=== PATIENT | female | born 1990 | race Caucasian/White ===

== ENCOUNTER → 2016-10-01 | Outpatient (CLI) | payer BC | LOC: RAD 09:34 | PROVIDERS: ATTEND Family Medicine | DX: R10.13 Epigastric pain (principal); R10.31 Right lower quadrant pain; Z90.49 Acquired absence of other specified parts of digestive tract | CPT/HCPCS: 76700; 76856 ==

== ENCOUNTER 2016-12-21 14:33 | Emergency (ER) | payer BC, OTHER ==
[~2016-12-21] VITALS: Ht 170.2 cm; Wt 138.0 kg
[~2016-12-21 14:33] MED LIST: ALB0.5V INH; AMT50T PO; BACI28.32 EXT; CEPH-507 PO; CODE-54 PO; DOXY1TAB4 PO; METH4TAB27 PO; MNTL10T PO; NORG1TAB14 PO; OMEP40CA36 PO; ONDN4T PO; PNV91TAB3 PO
--- OUTSIDE RECORDS SUMMARY | 2016-12-21 14:39 | XMS REPORT | Referral Summary ---
Author Author [facility] Organization [facility] Address Unknown Phone Unavailable Care Team Providers Care Costume Seamstress Name Role Phone Harinder Gee PCP [phone] Encounter Date(s): 04/15/15 - 04/15/15 [facility] [id number] [place] [id number] [facility] Discharge Diagnosis: Asthma Discharge Disposition: 01-Home or Self Care Attending Physician: Carley Moody MD Admitting Physician: Carley Moody MD Vital Signs No data available for this section Problem List Condition Effective Dates Status Health Status Informant Asthma(Confirmed) Active GERD Active (gastroesophageal reflux disease)(Confirmed) Morbid Active patient obesity(Confirmed) Allergies, Adverse Reactions, Alerts Substance Reaction Severity Status Latex Active Medications cetirizine 10 mg oral tablet 10 mg 1 tabs, Oral, Daily, # 30 tabs, 0 Refill(s) Start Date: 04/15/15 Status: Orderedomeprazole 40 mg oral delayed release capsule mg caps, Oral, BID, 0 Refill(s) Start Date: 04/15/15 Status: OrderedProventil HFA 90 mcg/inh inhalation aerosol See Instructions, 2-4 puffs every 4-6 hrs prn., 0 Refill(s) Start Date: 04/15/15 Status: OrderedSprintec tabs, Oral, Daily, 0 Refill(s) Start Date: 04/15/15 Status: Ordered Results No data available for this section Immunizations No data available for this section Procedures No data available for this section Social History Social History Type Response Smoking Status Never smoker Assessment and Plan No data available for this section
[2016-12-21] MEDS ORDERED: ONDA4TAB8 PO (15:24)
[2016-12-21] MEDS ORDERED: DIPH1TAB45 PO (15:24)
[2016-12-21 15:35] VITALS: BP 140/85
== END 2016-12-21 15:35 | disposition home or self-care (01) ==
LOC: EDUNIT# 14:33 → ED 14:35
DX: K52.9 Noninfective gastroenteritis and colitis, unspecified (principal)
CPT/HCPCS: 99283